=== PATIENT | male | born 1985 | race Caucasian/White ===

== ENCOUNTER 2017-07-06 10:08 | Emergency (ER) | payer OTHER ==
[2017-07-06 10:22] VITALS: RESP 18
--- NOTE | 2017-07-06 11:24 | ED ---
General Adult HPI - General Chief complaint: Extremity Problem,Nontraumatic Stated complaint: Pain in stunt area Time Seen by Provider: 07/06/17 10:58 Source: patient, RN notes reviewed, old records reviewed Mode of arrival: ambulatory Limitations: no limitations - History of Present Illness Initial comments: 32-year-old male presents for evaluation of swelling and irritation around his BRICK PAVING CHECKER shunt chest over the clavicle. Patient has history of cerebral palsy and hydrocephalus. His had BRICK PAVING CHECKER shunt since he was 18 months ago. His had one sharp revision which was approximately 4 years ago. Patient states that he noticed the irritation swelling yesterday. He did note that he had a fall off shoveling snow 2 days prior to noticing the swelling. He did fall onto his left hip. He has some mild pain in that area now. He denies any direct trauma to his catheter, denies any head or neck trauma. Patient has no blurry vision, no headache. No nausea or vomiting. No fever or chills. No other complaints other than localized tenderness and swelling over the BRICK PAVING CHECKER shunt at the clavicle. - Related Data Home Medications Medication Instructions Recorded Confirmed No Known Home Medications [No 07/06/17 07/06/17 Known Home Medications] Allergies Allergy/AdvReac Type Severity Reaction Status Date / Time amoxicillin [From Augmentin] Allergy Rash/Hives Verified 07/06/17 11:26 clavulanic acid Allergy Rash/Hives Verified 07/06/17 11:26 [From Augmentin] Review of Systems ROS Statement: Those systems with pertinent positive or pertinent negative responses have been documented in the HPI. ROS Other: All systems not noted in ROS Statement are negative. Past Medical History Additional Past Medical History / Comment(s): mild cerebral palsy, right club foot History of Any Multi-Drug Resistant Organisms: None Reported Additional Past Surgical History / Comment(s): BRICK PAVING CHECKER shunt Past Psychological History: No Psychological Hx Reported Smoking Status: Never smoker Past Alcohol Use History: None Reported Past Drug Use History: None Reported General Exam Limitations: no limitations General appearance: alert, in no apparent distress Head exam: Present: atraumatic, normocephalic Eye exam: Present: normal appearance, PERRL ENT exam: Present: normal exam Neck exam: Present: normal inspection. Absent: tenderness, meningismus Respiratory exam: Present: normal lung sounds bilaterally, chest wall tenderness (mild tenderness over the BRICK PAVING CHECKER shunt at the left clavicle, no erythema , no fluctuance, no induration, there is some mild swelling in this area.). Absent: respiratory distress Cardiovascular Exam: Present: regular rate, normal rhythm GI/Abdominal exam: Present: soft. Absent: distended, tenderness Extremities exam: Present: normal inspection, normal capillary refill. Absent: pedal edema Neurological exam: Present: alert, oriented X3 Psychiatric exam: Present: normal affect, normal mood Skin exam: Present: warm, dry, intact. Absent: cyanosis, diaphoretic Course Vital Signs 07/06/17 10:18 Temperature 97.2 F L Pulse Rate 89 Respiratory 18 Rate Blood Pressure 134/69 O2 Sat by Pulse 100 Oximetry Medical Decision Making - Medical Decision Making 32-year-old male presenting with pain and swelling over BRICK PAVING CHECKER shunt at the clavicle. No signs or symptoms to suggest shunt malfunction. No localized signs of infection. Patient has had shunt malfunction in the past and is well aware of these symptoms. X-rays are obtained including skull, chest, and abdomen. These images are reviewed by myself, does appear to be discontinuity in the tubing this may be lack of radiopaque marker versus disconnection. Patient does receive a computed tomography scan for additional information, there is a 1 mm segment of possible discontinuity on CT. This does not correspond with the patient's symptom location. I did attempt to contact the patient's neurosurgeon who is unavailable. As the patient is asymptomatic from the standpoint of shunt malfunction, he is safe for outpatient follow-up. He will return with any worsening or changing symptoms. He will apply ice to the area of irritation and take Motrin for pain. Disposition Clinical Impression: S/P BRICK PAVING CHECKER shunt Disposition: HOME SELF-CARE Condition: Good Additional Instructions: please follow up with neurosurgery. Return with any worsening or changing symptoms. Referrals: David Lowery DO [Primary Care Provider] - 1-2 days Time of Disposition: 13:09
--- NOTE | 2017-07-06 11:34 | XR ---
EXAMINATION TYPE: XR abdomen 1V DATE OF EXAM: 07/06/2017 COMPARISON: NONE HISTORY: Shunt study, pain TECHNIQUE: One view abdominal series FINDINGS: The osseous structures are intact. The bowel gas pattern is nonspecific. There is a shunt catheter e xtending from the left abdomen across the lower pelvis into the right hemipelvis with the tip just in ferior to the right SI joint. Upper abdomen not included on the exam. IMPRESSION: 1. Nonspecific abdomen. Shunt catheter seen coursing throughout the left side of the abdomen and ext ends across midline into the right lower hemipelvis
--- NOTE | 2017-07-06 11:35 | XR ---
EXAMINATION TYPE: XR skull limited DATE OF EXAM: 07/06/2017 COMPARISON: NONE HISTORY: Shunt study TECHNIQUE: 2 views submitted FINDINGS: Catheter is seen extending along the left calvarium overlying the upper margin of the left orbit. It descends along the soft tissues of the left neck toward the thorax. Remaining calvarium intact. IMPRESSION: Shunt catheter seen on the frontal view overlying the upper margin of the left orbit like ly intracranial correlate clinically.
--- NOTE | 2017-07-06 11:38 | XR ---
EXAMINATION TYPE: XR chest 1V DATE OF EXAM: 07/06/2017 COMPARISON: NONE HISTORY: Chest pain TECHNIQUE: Single frontal view of the chest is obtained. FINDINGS: There is no focal air space opacity, pleural effusion, or pneumothorax seen. The cardiac silhouette size is within normal limits. The osseous structures are intact. IMPRESSION: 1. No acute process.
--- NOTE | 2017-07-06 12:46 | CT ---
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 Automated Exposure Control for Dose Reduction was Utilized. TECHNIQUE: CT scan of the neck is without intravenous contrast, axial images are obtained, coronal a nd sagittal reformatted images are reviewed. FINDINGS: There is a left-sided ventriculoperitoneal shunt. Hortense is observed along the subcutane ous tissues of the left lateral neck posterior to the inferior mastoid air cells. Connector tubing is contiguous with the reservoir. Radiopaque foreign dense connector device is seen at the level of C5 with a radiolucent portion spanning approximately 2 cm an additional radiopaque connector device. Foc al short segment radiolucent portion is seen on sagittal series 6 image 70 measuring 2 mm. This is se en on axial series 3 image 78 and coronal series 5 image 35. It is uncertain if this is an additional radiolucent connector or area of discontinuity. Beginning just superior to the left clavicle calcifi cations within a short segment are seen surrounding the tubing device. Inferior margin of the tubing terminates over the left pectoralis muscles. There is a reversal usual cervical lordosis from C2 through C7. Osseous structures appear intact. IMPRESSION: Radiolucent 2 mm region along the soft tissues of the left neck as described above that is favored to represent a short segment of discontinuity, however other radiolucent portions are visualized and th is could represent an additional short segment radiolucent connector portion.
[2017-07-06 13:20] VITALS: BP 119/82; PULSE 88; TEMP 98
== END 2017-07-06 13:20 | disposition home or self-care (01) ==
LOC: EC 10:08
DX: Z51.89 Encounter for other specified aftercare (principal); Z98.2 Presence of cerebrospinal fluid drainage device; Z88.0 Allergy status to penicillin
CPT/HCPCS: 70250; 70490; 71045; 74018; 99284

== ENCOUNTER → 2017-07-30 | Outpatient (CLI) | payer OTHER ==
--- NOTE | 2017-07-30 09:55 | CT ---
EXAMINATION TYPE: CT brain wo con DATE OF EXAM: 07/30/2017 COMPARISON: CT brain. 02/17/2011 HISTORY: Hydrocephalus, shunt is broke CT DLP: 933.6 mGycm. Automated Exposure Control for Dose Reduction was Utilized. TECHNIQUE: CT scan of the head is performed without contrast. FINDINGS: There is persistent left parietal keyla hole with CONSUMER LOAN OFFICER shunt catheter terminating in posterior superior aspect left lateral ventricle. No acute intracranial hemorrhage is seen. There is redemonst ration of asymmetric left-sided atrophy and extra-axial CSF prominence. There is redemonstration of m ediastinal shift which is stable measuring up to 9 mm axial image 25. Ventricular size is unchanged f rom prior CT. No hydrocephalus is present. There is ex vacuo dilatation or prominence of left ventric ular system. There is left superior parietal encephalomalacia redemonstrated. The globes are intact a nd the visualized sinuses are clear. IMPRESSION: No significant change from 2011 CT. Left-sided CONSUMER LOAN OFFICER shunt catheter with stable size of lana tricles.
== END | disposition home or self-care (01) ==
LOC: RADCTMAIN 09:10
PROVIDERS: ATTEND Family Medicine
DX: G91.9 Hydrocephalus, unspecified (principal); Z98.2 Presence of cerebrospinal fluid drainage device
CPT/HCPCS: 70450

== ENCOUNTER 2017-09-21 19:59 | Emergency (ER) | payer OTHER ==
[2017-09-21] MEDS ORDERED: SODIUM CHLORIDE 0.9% 500 ML IV STA (22:14)
[2017-09-21] MEDS ORDERED: diphenhydrAMINE 50 MG/ML 1 ML VIAL IVP STA (22:14)
[2017-09-21] MEDS ORDERED: METOCLOPRAMIDE 5 MG/ML 2 ML VIAL IVP STA (22:14)
[2017-09-21] MEDS ORDERED: ACETAMINOPHEN IV (For NPO) 1,000 MG in EMPTY BAG 1 BAG IVPB ONE (22:15)
--- NOTE | 2017-09-21 22:22 | ED ---
General Adult HPI - General Chief complaint: Headache Stated complaint: migraines Time Seen by Provider: 09/21/17 22:06 Source: patient, RN notes reviewed, old records reviewed Mode of arrival: ambulatory Limitations: no limitations - History of Present Illness Initial comments: 32-year-old male presents for evaluation of headache. Patient's headache has been present throughout the day today. Describes it as a frontal headache. Dull and aching. It has come and gone throughout the day today. Patient had recent shunt revision of his MAC OPERATOR shunt at [facility]. He has been doing well since the revision approximately 2 weeks ago. No daily headaches. Patient does not have headache history. Denies URI symptoms. Denies nausea or vomiting. Patient has had subjective fever and chills. Headache seems to be worse when lying flat. He also complains of some tingling in his left hand and face. This is also intermittent. No focal weakness. History of cerebral palsy and hydrocephalus. - Related Data Home Medications Medication Instructions Recorded Confirmed Ibuprofen [Motrin Ib] 400 mg PO Q6H PRN 09/21/17 09/21/17 Previous Rx's Medication Instructions Recorded HYDROcodone/APAP 5-325MG [Vining 1 tab PO Q6HR PRN #12 tab 09/22/17 5-325] Ibuprofen [Motrin] 600 mg PO Q8HR PRN #24 tab 09/22/17 Allergies Allergy/AdvReac Type Severity Reaction Status Date / Time amoxicillin [From Augmentin] Allergy Rash/Hives Verified 09/21/17 22:47 clavulanic acid Allergy Rash/Hives Verified 09/21/17 22:47 [From Augmentin] Review of Systems ROS Statement: Those systems with pertinent positive or pertinent negative responses have been documented in the HPI. ROS Other: All systems not noted in ROS Statement are negative. Past Medical History Additional Past Medical History / Comment(s): mild cerebral palsy, right club foot History of Any Multi-Drug Resistant Organisms: None Reported Additional Past Surgical History / Comment(s): MAC OPERATOR shunt Past Psychological History: No Psychological Hx Reported Smoking Status: Never smoker Past Alcohol Use History: None Reported Past Drug Use History: None Reported General Exam Limitations: no limitations General appearance: alert, in no apparent distress Head exam: Present: atraumatic, normocephalic Eye exam: Present: normal appearance, PERRL, EOMI Neck exam: Present: normal inspection. Absent: tenderness, meningismus Respiratory exam: Present: normal lung sounds bilaterally. Absent: respiratory distress, wheezes Cardiovascular Exam: Present: regular rate, normal rhythm GI/Abdominal exam: Present: soft. Absent: distended, tenderness Extremities exam: Present: normal inspection, normal capillary refill. Absent: pedal edema Neurological exam: Present: alert, oriented X3, CN II-XII intact, other (Mild limb ataxia, history of cerebral palsy). Absent: motor sensory deficit Skin exam: Present: warm, dry, intact. Absent: cyanosis, diaphoretic Course Vital Signs 09/21/17 20:07 Temperature 98.2 F Pulse Rate 74 Respiratory 20 Rate Blood Pressure 134/85 O2 Sat by Pulse 100 Oximetry - Reevaluation(s) Reevaluation #1: 09/22/17 0030 On reevaluation patient does have mild persistent headache although it is improved. Reevaluation #2: 09/22/17 01:18 On reevaluation, headache is nearly completely resolved. Medical Decision Making - Medical Decision Making 32-year-old male with cerebral palsy, history of hydrocephalus and MAC OPERATOR shunt presents with headache. Patient is approximately 2 weeks postop shunt revision. According to patient he did not have the intracranial portion of his shunt revised. He had a leak in the left neck region. Patient is given some IV hydration, given Reglan and and Benadryl as well as oh for meth for his headache. Laboratory studies are obtained, CMP unremarkable, CBC does show a mild leukocytosis at 11.6 which is predominantly neutrophils are this is a nonspecific indicator of infection. Lactic acid normal. Vital signs normal, patient is afebrile throughout his stay in the emergency department. CT is obtained, there is no hydrocephalus, no acute change compared to previous CT, no intracranial hemorrhage. Patient is somewhat high risk getting his MAC OPERATOR shunt , he is offered transfer to [place] for evaluation by his neurosurgical team, he declines at this time we'll prefer to repeat present illness symptoms do not completely resolve. He is very reliable, he is also accompanied by his mother. Both are agreeable with this plan. - Lab Data Result diagrams: 09/21/17 22:58 09/21/17 22:58 Lab Results 09/21/17 09/21/17 09/21/17 Range/Units 22:58 22:58 22:58 WBC 11.6 H (3.8-10.6) k/uL RBC 5.32 (4.30-5.90) m/uL Hgb 15.6 (13.0-17.5) gm/dL Hct 45.2 (39.0-53.0) % MCV 85.1 (80.0-100.0) fL MCH 29.4 (25.0-35.0) pg MCHC 34.6 (31.0-37.0) g/dL RDW 12.4 (11.5-15.5) % Plt Count 244 (150-450) k/uL Neutrophils % 78 % Lymphocytes % 14 % Monocytes % 5 % Eosinophils % 1 % Basophils % 0 % Neutrophils # 9.1 H (1.3-7.7) k/uL Lymphocytes # 1.7 (1.0-4.8) k/uL Monocytes # 0.6 (0-1.0) k/uL Eosinophils # 0.2 (0-0.7) k/uL Basophils # 0.0 (0-0.2) k/uL Sodium 141 (137-145) mmol/L Potassium 3.8 (3.5-5.1) mmol/L Chloride 103 (98-107) mmol/L Carbon Dioxide 23 (22-30) mmol/L Anion Gap 15 mmol/L BUN 20 (9-20) mg/dL Creatinine 0.60 L (0.66-1.25) mg/dL Est GFR (CKD-EPI)AfAm >90 (>60 ml/min/1.73 sqM) Est GFR (CKD-EPI)NonAf >90 (>60 ml/min/1.73 sqM) Glucose 107 H (74-99) mg/dL Plasma Lactic Acid Hector 0.8 (0.7-2.0) mmol/L Calcium 9.6 (8.4-10.2) mg/dL Total Bilirubin 1.0 (0.2-1.3) mg/dL AST 27 (17-59) U/L ALT 24 (21-72) U/L Alkaline Phosphatase 53 (38-126) U/L Total Protein 7.0 (6.3-8.2) g/dL Albumin 4.6 (3.5-5.0) g/dL Disposition Clinical Impression: Headache Disposition: HOME SELF-CARE Condition: Fair Instructions: Acute Headache (ED) Additional Instructions: Please follow up with your neurosurgeon, return to the emergency department with any worsening or changing symptoms including worsening headache, fever, nausea vomiting. Prescriptions: HYDROcodone/APAP 5-325MG [Vining 5-325] 1 tab PO Q6HR PRN #12 tab PRN Reason: Pain Ibuprofen [Motrin] 600 mg PO Q8HR PRN #24 tab PRN Reason: Pain Is patient prescribed a controlled substance at d/c from ED?: Yes If prescribed controlled substance>3 days was MAPS reviewed?: Yes When asked, does pt state using other controlled substances?: No Referrals: David Lowery DO [Primary Care Provider] - 1-2 days Time of Disposition: 01:21
[2017-09-21 23:09] LABS: Basophils % (A) 0 %; Eosinophils # (A) 0.2 k/uL (0-0.7); Eosinophils % (A) 1 %; HCT 45.2 % (39.0-53.0); HGB 15.6 gm/dL (13.0-17.5); Lymphocytes # (A) 1.7 k/uL (1.0-4.8); Lymphocytes % (A) 14 %; MCH 29.4 pg (25.0-35.0); MCHC 34.6 g/dL (31.0-37.0); MCV 85.1 fL (80.0-100.0); Mean Platelet Volume 7.7; Monocytes # (A) 0.6 k/uL (0-1.0); Monocytes % (A) 5 %; Neutrophils # (A) 9.1 k/uL (1.3-7.7); Neutrophils % (A) 78 %; Platelet Count 244 k/uL (150-450); RBC 5.32 m/uL (4.30-5.90); RDW 12.4 % (11.5-15.5); WBC 11.6 k/uL (3.8-10.6)
[2017-09-21 23:17] LABS: ALT 24 U/L (21-72); AST 27 U/L (17-59); Albumin 4.6 g/dL (3.5-5.0); Alkaline Phosphatase 53 U/L (38-126); Anion Gap 15 mmol/L; Blood Urea Nitrogen 20 mg/dL (9-20); Calcium 9.6 mg/dL (8.4-10.2); Carbon Dioxide 23 mmol/L (22-30); Chloride 103 mmol/L (98-107); Glucose 107 mg/dL (74-99); Potassium 3.8 mmol/L (3.5-5.1); Sodium 141 mmol/L (137-145)
--- NOTE | 2017-09-21 23:40 | CT ---
EXAMINATION TYPE: CT brain wo con DATE OF EXAM: 09/21/2017 COMPARISON: 07/30/2017 HISTORY: prior on synapse, BRANHAM history of shunt CT DLP: 1029.90 mGycm. Automated Exposure Control for Dose Reduction was Utilized. TECHNIQUE: CT scan of the head is performed without contrast. FINDINGS: There is widening of the sulci in the left parietal lobe consistent with some porencephaly . There is a left posterior shunt catheter with the tip in the left lateral ventricle. Ventricles are not enlarged. The midline is shifted slightly to the left side probably due to encephalomalacia. The re is no sign of intracranial hemorrhage. There is no evidence of cerebral edema. The calvarium is in tact. 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 No acute intracrania l abnormality. No hydrocephalus.
[2017-09-22] MEDS ORDERED: KETOROLAC 30 MG/ML 1 ML VIAL IVP STA (00:23)
[2017-09-22] MEDS ORDERED: HYDROcodone/APAP 5-325MG 1 EACH TAB PO STA (01:18)
[2017-09-22 01:35] VITALS: BP 127/63; PULSE 62; RESP 16; TEMP 98.1
== END 2017-09-22 01:36 | disposition home or self-care (01) ==
LOC: EC 19:59
DX: R51 Headache (principal); R20.2 Paresthesia of skin; G80.9 Cerebral palsy, unspecified; Z98.2 Presence of cerebrospinal fluid drainage device; Z88.0 Allergy status to penicillin
CPT/HCPCS: 36415; 80053; 83605; 85025; 87040; 70450; 99285; 96365; 96375 ×3; J1200; J2765; J0131

== ENCOUNTER 2019-03-01 11:24 | Emergency (ER) | payer OTHER ==
[2019-03-01 11:29] VITALS: TEMP 98.1
--- NOTE | 2019-03-01 11:56 | ED ---
General Adult HPI - General Chief complaint: Recheck/Abnormal Lab/Rx Stated complaint: shunt pain in neck Time Seen by Provider: 03/01/19 11:25 Source: patient, RN notes reviewed Mode of arrival: ambulatory Limitations: no limitations - History of Present Illness Initial comments: This is a 33-year-old male who presents emergency Department with a past medical history significant for cerebral palsy and normal pressure hydrocephalus. Patient comes in today because earlier in the week he had some right-sided neck stiffness however he states yesterday he turned his head and felt a crack in his lower neck region on the spine and he states that pain went away instantly. Patient states he also has had some discomfort on the left side over his clavic le where the shunt runs and he is just concerned that maybe something is happening to the shunt. Patient states in the past with shunt is blocked can't he normally is other symptoms and none of the symptoms are occurring today. Patient denies headache patient denies any numbness weakness. Patient denies any ataxia. Patient denies any urinary comments. Patient denies any confusion. Patient denies any swishing noise in his ears which is asymptomatic he normally has when he has a block. Patient denies any nausea or vomiting. - Related Data Home Medications Medication Instructions Recorded Confirmed Naproxen Sodium [Aleve] 440 mg PO BID PRN 03/01/19 03/01/19 Allergies Allergy/AdvReac Type Severity Reaction Status Date / Time amoxicillin [From Augmentin] Allergy Rash/Hives Verified 03/01/19 11:36 clavulanic acid Allergy Rash/Hives Verified 03/01/19 11:36 [From Augmentin] Review of Systems ROS Statement: Those systems with pertinent positive or pertinent negative responses have been documented in the HPI. ROS Other: All systems not noted in ROS Statement are negative. 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 Patient is nontoxic and well- hydrated and is in no acute distress. ENT: Neck is soft and supple. No significant lymphadenopathy is noted. Oropharynx is clear. Moist mucous membranes. Neck has full range of motion without eliciting any pain. EYES: The sclera were anicteric and conjunctiva were pink and moist. Extraocular movements were intact and pupils were equal round and reactive to light. Eyelid s were unremarkable. PULMONARY: Unlabored respirations. Good breath sounds bilaterally. No audible rales rhonchi or wheezing was noted. CARDIOVASCULAR: There is a regular rate and rhythm without any murmurs gallops or rubs. ABDOMEN: Soft and nontender with normal bowel sounds. SKIN: Skin is clear with no lesions or rashes and otherwise unremarkable. NEUROLOGIC: Patient is alert and oriented x3. Cranial nerves II through XII are grossly intact. Motor and sensory at their baseline. Normal speech, volume and content. Symmetrical smile. Cerebellar testing finger to nose is normal. MUSCULOSKELETAL: Normal extremities with adequate strength and full range of motion. No lower extremity swelling or edema. No calf tenderness. Patient has no signs of infection at the area of concern over the left clavicle there is no swelling there is no fluid collection. There is no specific area of tenderness over that area. LYMPHATICS: No significant lymphadenopathy is noted PSYCHIATRIC: Normal psychiatric evaluation. Limitations: no limitations Course Vital Signs 03/01/19 03/01/19 11:25 13:49 Temperature 98.1 F Pulse Rate 91 84 Respiratory 18 16 Rate Blood Pressure 146/87 145/98 O2 Sat by Pulse 100 100 Oximetry Medical Decision Making - Medical Decision Making X-rays of the shunt were done some gall chest x-ray and abdominal x-ray. Patient has a disruption about 2.5 cm over the left clavicle of the DIAMOND SETTER APPRENTICE shunt. I spoke with his neurosurgeon Dr. Choudhary and he wanted the patient transferred to [facility] and he was okay with the patient going by private vehicle. I spoke with the patient he also was okay with was going by private vehicle. I spoke with the ER physician at [facility] he accepted the transfer by private vehicle. Disposition Clinical Impression: Malfunction of ventriculo-peritoneal shunt Disposition: OTHER INSTITUTION NOT DEFINED Referrals: David Lowery DO [Primary Care Provider] - 1-2 days - Out of Hospital Transfer - Req. Specs Out of Hospital Transfer - Requested Specifics: Other Emergency Center ([facility])
--- NOTE | 2019-03-01 12:18 | XR ---
EXAMINATION TYPE: XR chest 1V, XR skull limited, XR abdomen 1V DATE OF EXAM: 03/01/2019 COMPARISON: Prior shunt series July 06, 2017. CT neck July 06, 2017. HISTORY: Known AIRLINE TICKET AGENT shunt with headache. TECHNIQUE: 2 view skull. Single frontal view of the chest and abdomen are obtained. FINDINGS: There is persistent inferior left parietal BP shunt catheter, radiodense portion is contigu ous without significant change from prior study. Tip position of posterior level not significantly ch anged. There is partial visualization of abandoned shunt catheter on current study in the left lower neck anterior medial to this. Lungs remain clear. The cardiac silhouette size is within normal limits. The osseous structures are intact. Overlying left-sided shunt catheter redemonstrated with poor visualization of radiodense por tion just below left clavicle not as well seen on prior study. There is persistent left abdominal AIRLINE TICKET AGENT shunt catheter terminating in the pelvis just right of midline. The tip position is changed from prior. Overall nonobstructive bowel gas pattern. IMPRESSION: Cannot exclude interval fragmentation of the superior thoracic portion of the AIRLINE TICKET AGENT shunt c atheter which is not clearly identified on today's x-ray. Corresponding neck CT showed calcification at this level in July 2017
--- NOTE | 2019-03-01 13:48 | XR ---
EXAMINATION TYPE: XR chest special 3 views DATE OF EXAM: 03/01/2019 COMPARISON: Same day chest x-ray. HISTORY: Abnormal x-ray. TECHNIQUE: 3 additional views of the upper thorax focusing near level of the upper ribs was performed . FINDINGS: There is nonvisualization of a short segment of ADULT HIGH SCHOOL INSTRUCTOR shunt catheter estimated 2.5 cm on addit ional views consistent with the ADULT HIGH SCHOOL INSTRUCTOR shunt disruption or break. IMPRESSION: As above.
[2019-03-01 13:50] VITALS: BP 145/98; PULSE 84; RESP 16
== END 2019-03-01 14:55 | disposition other institution (70) ==
LOC: EC 11:24
DX: T85.01XA Breakdown (mechanical) of ventricular intracranial (communicating) shunt, initial encounter (principal); G80.9 Cerebral palsy, unspecified; G91.2 (Idiopathic) normal pressure hydrocephalus; Z98.2 Presence of cerebrospinal fluid drainage device; Z88.0 Allergy status to penicillin
CPT/HCPCS: 70250; 71045; 71047; 74018; 99284